=== PATIENT | female | born 1985 | race Caucasian/White ===

== ENCOUNTER 2016-12-28 14:37 | Emergency (ER) | payer OTHER ==
[2016-12-28 14:48] VITALS: TEMP 98; BMI 49.5
--- NOTE | 2016-12-28 14:48 | PDOC ---
Rapid Medical Evaluation Chief Complaint: Chest Pain Time Seen by Provider: 12/28/16 14:43 Medical Evaluation: Allergies I have performed a brief in-person evaluation of this patient. The patient presents with a chief complaint of: 31 yo F history Lyme disease, webber's palsy, GERD presents with 3-4 days of chest pain associated with SOB. Rates pain as 5/10. Also c/o headache for past month. No OCP use, no recent travel. Smokes 1/4 PPD. I have ordered the following: EKG. The patient will proceed to the ED for further evaluation.
--- NOTE | 2016-12-28 19:04 | PDOC ---
History of Present Illness - General History Source: Patient Exam Limitations: No Limitations - History of Present Illness Initial Comments: 12/28/16 19:05 The patient is a 31 year old female with significant past medical history of Lyme disease, bells palsy, GERD, and anxiety who presents to the emergency department with chest pain and shortness of breath for the last 4 days. She states the pain is localized to the epigastric region and radiates up her sternum. She states the pain has been intermittent for the last few days however now it has become constant. She describes the pain as aching and sharp. The pain does not change with exercise. She reports associated shortness of breath. She denies any palpitations or lightheadedness. The patient is also complaining of a headache. She has an appointment to follow up with a neurologist on January 19. She denies recent illness, fevers, or chills. <Pat Weber - Last Filed: 12/28/16 19:05> <Agustín Garcia - Last Filed: 12/28/16 20:13> - General Chief Complaint: Chest Pain Stated Complaint: CHEST PAIN, DIZZINESS Time Seen by Provider: 12/28/16 14:43 Past History <Pat Weber - Last Filed: 12/28/16 19:05> - Past Medical History Asthma: No Cancer: No Cardiac Disorders: No Diabetes: No HTN: No Seizures: No Thyroid Disease: No - Reproductive History (#): 2 Para: 1 - Psycho/Social/Smoking Cessation Hx Anxiety: Yes Suicidal Ideation: No Smoking Status: Yes Smoking History: Never smoked Have you smoked in the past 12 months: No Number of Cigarettes Smoked Daily: 10 If you are a former smoker, when did you quit?: 6 months Information on smoking cessation initiated: Yes 'Breaking Loose' booklet given: 05/18/15 Hx Alcohol Use: No Drug/Substance Use Hx: No Substance Use Type: None Hx Substance Use Treatment: No <Agustín Garcia - Last Filed: 12/28/16 20:13> - Past Medical History Allergies/Adverse Reactions: Allergies Allergy/AdvReac Type Severity Reaction Status Date / Time No Known Allergies Allergy Verified 12/28/16 14:43 Home Medications: Ambulatory Orders Pnv#24/Iron Aa Saba/FA/Dha [ Dha+Complete ] 1 tab PO DAILY 01/20 Penicillin V Potassium [Pen Vee K -] 500 mg PO QID #40 tablet 03/26/16 Folic Acid - 1 mg PO DAILY 03/29/16 Ibuprofen [Motrin -] 600 mg PO Q4H PRN #60 tablet 03/31/16 Review of Systems - Review of Systems Constitutional: No: Chills, Fever Respiratory: No: Cough, Shortness of Breath Cardiac (ROS): Yes: Chest Pain. No: Edema, Lightheadedness, Palpitations, Syncope ABD/GI: No: Nausea, Vomiting Integumentary: No: Rash All Other Systems: Reviewed and Negative <Agustín Garcia - Last Filed: 12/28/16 20:13> *Physical Exam - Vital Signs Last Vital Signs Temp Pulse Resp BP Pulse Ox 98 F 85 16 115/34 98 12/28/16 14:44 12/28/16 14:44 12/28/16 14:44 12/28/16 14:44 12/28/16 14:44 - Physical Exam Comments: 12/28/16 19:05 GENERAL: The patient is awake, alert, and fully oriented, in no acute distress. HEAD: Normal with no signs of trauma. EYES: Pupils equal, round and reactive to light, extraocular movements intact, sclera anicteric, conjunctiva clear with no pallor. ENT: Ears normal, nares patent, oropharynx clear without exudates. Moist mucous membranes. NECK: Normal range of motion, supple without lymphadenopathy, JVD, or masses. LUNGS: Breath sounds equal, clear to auscultation bilaterally. No wheeze/ crackles. HEART: Regular rate and rhythm, normal S1 and S2 without murmur or rub. ABDOMEN: Soft/nontender/nondistended. BS wnl. No guarding or rebound. No palpable masses. No hepatosplenomegaly. EXTREMITIES: Normal range of motion, no edema. No clubbing or cyanosis. No cords, erythema, or tenderness. NEUROLOGICAL: Cranial nerves II through XII grossly intact. Normal speech, normal gait. PSYCH: Normal mood, normal affect. SKIN: Warm, Dry, normal turgor, no rashes or lesions noted. <Pat Weber - Last Filed: 12/28/16 19:05> - Vital Signs Last Vital Signs Temp Pulse Resp BP Pulse Ox 98 F 85 16 115/34 98 12/28/16 14:44 12/28/16 14:44 12/28/16 14:44 12/28/16 14:44 12/28/16 14:44 <Agustín Garcia - Last Filed: 12/28/16 20:13> Heart Score/ECG Review - History History: Slightly suspicious - Electrocardiogram EKG: Non specific repolarization disturbance - Age Age: </= 45 - Risk Factors Based on the list above the patient has:: No risk factors known - Troponin Troponin: </= normal limit - Score Heart Score - Total: 1 #1 ECG reviewed & interpreted by me at: 14:50 General ECG Interpretation: Sinus Rhythm, Normal Rate (81), Normal Intervals ( qtc 453), No acute ischemic changes (TWI V4, flattening V5-6) Compared to previous ECG there are: Changes noted (01/21/16) <Agustín Garcia - Last Filed: 12/28/16 20:13> ED Treatment Course - ADDITIONAL ORDERS Additional order review: Laboratory Results 12/28/16 18:18 Urine HCG, Qual Negative <Pat Weber - Last Filed: 12/28/16 19:05> - ADDITIONAL ORDERS Additional order review: Laboratory Results 12/28/16 18:18 Urine HCG, Qual Negative - RADIOLOGY Radiology Studies Ordered: Category Date Time Status CHEST PA & LAT [RAD] Stat Radiology 12/28/16 18:42 Ordered <Agustín Garcia - Last Filed: 12/28/16 20:13> Medical Decision Making - Medical Decision Making 12/28/16 19:43 A portion of this note was documented by scribe services under my direction. I have reviewed the details of the note, within reason, and agree with the documentation with the following case summary and management plan written by me. 31-year-old female with questionable psych/anxiety history, history of Lyme disease diagnosed in 2014 and treated presents with several days of epigastric and substernal chest pain, sharp and intermittent, not associated with position or by mouth intake or exertion. No shortness of breath or palpitations, no signs or symptoms of DVT, no recent risk factors for PE. Did not have cardiac complications of Lyme such as pericarditis or myocarditis. She presents today versus the other days because she "had time today." Sxs were preceded by some odynophagia and heartburn 2 weeks ago, since resolved. VSS, afebrile, HR and O2 sat normal well appearing, seated in stretcher and ambulating in ED on her headphones no jvd s1s2 rrr, no m ctab abd soft no edema/calf ttp This is a 31-year-old female with history of Lyme disease who presents with atypical chest pain over the last 3 days. The symptoms are not consistent with ACS, she clinically rules out and does not have risk factors for PE. No evidence of infectious process. Question GI, question pericarditis. EKG shows no NM depressions or ST elevations, but there are nonspecific T-wave inversions in V4 and V5 that were not presents on prior EKG. awaiting chest x-ray Will check troponin given several days of symptoms. Presuming negative troponin , patient's heart score is 1 given the repolarization abnormalities. She has prompt follow-up with her primary physician and clamshell operator, so will arrange follow-up if troponins are unremarkable and chest x-ray is clear. Patient was signed out to the oncoming ED physician to follow-up the results, reassess the patient, and dispo accordingly. <Agustín Garcia - Last Filed: 12/28/16 20:13> *DC/Admit/Observation/Transfer - Attestations Scribe Attestion: 12/28/16 19:05 Documentation prepared by Pat Weber, acting as medical voucher clerk for Agustín Garcia MD. <Pat Weber - Last Filed: 12/28/16 19:05> <Agustín Garcia - Last Filed: 12/28/16 20:13> Diagnosis at time of Disposition: Atypical chest pain - Referrals Referrals: Edgardo Blanca MD [Primary Care Provider] -
[2016-12-28 20:40] LABS: BASOPHIL 0.6 % (0-2.0); EOSINOPHIL 1.8 % (0-4.5); MCH 30.5 pg (25.7-33.7); MCHC 33.9 g/dl (32.0-36.0); MEAN CELL VOLUME 90.1 fl (80-96); MEAN PLT VOLUME 8.5 fl (7.5-11.1); NEUTROPHILS 57.5 % (42.8-82.8); PLATELET COUNT 204 K/MM3 (134-434); RDW 12.2 % (11.6-15.6); WHITE BLOOD COUNT 8.5 K/mm3 (4.0-10.0)
[2016-12-28 20:52] LABS: ALBUMIN 4.2 g/dl (3.4-5.0); ANION GAP 6 (8-16); BILIRUBIN,TOTAL 0.3 mg/dL (0.2-1.0); CALCIUM 9.2 mg/dL (8.5-10.1); CO2 30 mmol/L (21-32); CREATININE 0.7 mg/dL (0.55-1.02); GLUCOSE,RANDOM 85 mg/dL (74-106); SGOT/AST 8 U/L (15-37); SGPT/ALT 12 U/L (12-78); TOT PROT 7.1 g/dl (6.4-8.2)
[2016-12-28 20:55] LABS: ALK PHOS 43 U/L (45-117); TROPONIN I < 0.02 ng/ml (0.00-0.05)
--- NOTE | 2016-12-28 21:16 | PDOC ---
*Physical Exam - Vital Signs Last Vital Signs Temp Pulse Resp BP Pulse Ox 98 F 72 20 109/69 97 12/28/16 14:44 12/28/16 20:10 12/28/16 20:10 12/28/16 20:10 12/28/16 20:10 ED Treatment Course - LABORATORY CBC & Chemistry Diagram: 12/28/16 20:10 12/28/16 20:10 - ADDITIONAL ORDERS Additional order review: Laboratory Results 12/28/16 12/28/16 20:10 18:18 Sodium 138 Potassium 3.8 Chloride 102 Carbon Dioxide 30 D Anion Gap 6 L BUN 10 Creatinine 0.7 D Creat Clearance w eGFR > 60 Random Glucose 85 Calcium 9.2 Total Bilirubin 0.3 D AST 8 L D ALT 12 D Alkaline Phosphatase 43 L D Creatine Kinase 45 Troponin I < 0.02 Total Protein 7.1 Albumin 4.2 D Urine HCG, Qual Negative 12/28/16 20:10 RBC 4.44 MCV 90.1 MCHC 33.9 RDW 12.2 MPV 8.5 Neutrophils % 57.5 D Lymphocytes % 33.5 D Monocytes % 6.6 Eosinophils % 1.8 D Basophils % 0.6 *DC/Admit/Observation/Transfer Diagnosis at time of Disposition: Atypical chest pain - Discharge Dispostion Disposition: HOME Admit: No - Prescriptions Prescriptions: Doxycycline Monohydrate [Monodox] 100 mg PO Q12H #30 capsule Oxycodone HCl/Acetaminophen [Percocet 10-325 mg Tablet] 1 each PO TID #20 MDD 4 Valacyclovir HCl [Valtrex] 1,000 mg PO BID #60 tablet - Referrals Referrals: Edgardo Blanca MD [Primary Care Provider] - Wander Green MD [Staff Physician] - Fortino Grant MD [Staff Physician] - - Patient Instructions Printed Discharge Instructions: DI for Atypical Chest Pain - Post Discharge Activity
[2016-12-28 21:26] VITALS: BP 113/74; PULSE 76
--- NOTE | 2016-12-29 10:43 | EKG ---
Test Reason : Blood Pressure : / mmHG Vent. Rate : 081 BPM Atrial Rate : 081 BPM P-R Int : 134 ms QRS Dur : 092 ms QT Int : 390 ms P-R-T Axes : 047 068 014 degrees QTc Int : 453 ms SINUS RHYTHM WITH PREMATURE ATRIAL COMPLEXES NONSPECIFIC T WAVE ABNORMALITY ABNORMAL ECG WHEN COMPARED WITH ECG OF 21-JAN-2016 09:57, PREMATURE ATRIAL COMPLEXES ARE NOW PRESENT NONSPECIFIC T WAVE ABNORMALITY, WORSE IN INFERIOR LEADS Confirmed by NORIS MUÑIZ, LILIA ([id number]) on 12/29/2016 10:43:29 AM Referred By: Confirmed By:LILIA HAMM MD
== END 2016-12-28 21:26 | disposition home or self-care (01) ==
LOC: JER 14:37
DX: R07.89 Other chest pain (principal); A69.20 Lyme disease, unspecified; F41.9 Anxiety disorder, unspecified; K21.9 Gastro-esophageal reflux disease without esophagitis; G51.0 Bell's palsy
CPT/HCPCS: 36415; 71020-TC; 80053; 82550; 84443; 84484; 84703; 85025; 93005; 93010; 99283-25

== ENCOUNTER 2017-02-10 20:06 | Emergency (ER) | payer OTHER ==
[2017-02-10 20:23] VITALS: BP 112/60; PULSE 78; TEMP 98.2; BMI 23.3
--- NOTE | 2017-02-10 20:44 | PDOC ---
[id number] 4d RT ARM PAIN/NUMB Time Seen by Provider: 02/10/17 20:34 History Source: Patient Exam Limitations: No Limitations - History of Present Illness Initial Comments: 02/10/17 20:43 31 yr female with c/o pain to right arm causing numbness and tingling to the forearm . Pt states she has been lifting her heavy 10 month old and felt a pull last monday. Pt denies fever or chills, no coughing. Past History - Past Medical History Allergies/Adverse Reactions: Allergies Allergy/AdvReac Type Severity Reaction Status Date / Time No Known Allergies Allergy Verified 02/10/17 20:19 Home Medications: Ambulatory Orders Cyclobenzaprine HCl [Flexeril 10 mg] 5 mg PO TID PRN #21 tablet 02/10/17 Methylprednisolone [Medrol Dose Juan] 4 mg PO ASDIR #21 tablet 02/10/17 Asthma: No Cancer: No Cardiac Disorders: No Diabetes: No HTN: No Seizures: No Thyroid Disease: No - Reproductive History (#): 2 Para: 1 - Psycho/Social/Smoking Cessation Hx Anxiety: Yes Suicidal Ideation: No Smoking Status: Yes Smoking History: Former smoker Have you smoked in the past 12 months: No Number of Cigarettes Smoked Daily: 10 If you are a former smoker, when did you quit?: 6 months Information on smoking cessation initiated: No 'Breaking Loose' booklet given: 05/18/15 Hx Alcohol Use: No Drug/Substance Use Hx: No Substance Use Type: None Hx Substance Use Treatment: No *Physical Exam - Vital Signs Last Vital Signs Temp Pulse Resp BP Pulse Ox 98.2 F 78 18 112/60 99 02/10/17 20:21 02/10/17 20:21 02/10/17 20:21 02/10/17 20:21 02/10/17 20:21 - Physical Exam General Appearance: Yes: Nourished, Appropriately Dressed HEENT: positive: EOMI, YANDY, Normal ENT Inspection, TMs Normal, Pharynx Normal Neck: positive: Supple, Tender lateral (right side), Other (FROM ). negative: Decreased range of motion, Tender midline Respiratory/Chest: positive: Lungs Clear Cardiovascular: positive: Regular Rhythm, Regular Rate Gastrointestinal/Abdominal: positive: Normal Bowel Sounds, Soft Musculoskeletal: positive: Normal Inspection Extremity: positive: Normal Capillary Refill, Normal Inspection, Other (right shoulder upper arm limited ROM due to pain, pain iwth abduction, straight raise , nv intact ) Integumentary: positive: Normal Color, Dry, Warm Neurologic: positive: Fully Oriented, Alert, Normal Mood/Affect, Normal Response , Motor Strength /5 Medical Decision Making - Medical Decision Making 02/10/17 20:48 cc: pain to right shoulder upper arm for 5 days after lifting young child felt a train to her neck and shoulder, pain has progressed getting worse. pt denies direct trauma pt takes percocet for Lyme disease (joint pain) and for [place] palsy states she ran out of the percocet 3 days ago pt denies any nvd or sweats will get xray of cervical spine toradol IM dc with muscle relaxants and medrol dose pack *DC/Admit/Observation/Transfer Diagnosis at time of Disposition: Cervical radiculopathy - Discharge Dispostion Disposition: HOME Condition at time of disposition: Good - Prescriptions Prescriptions: Cyclobenzaprine HCl [Flexeril 10 mg] 5 mg PO TID PRN #21 tablet PRN Reason: Muscle Spasms Methylprednisolone [Medrol Dose Juan] 4 mg PO ASDIR #21 tablet - Referrals Referrals: Ni Trujillo MD [Primary Care Provider] - - Patient Instructions Additional Instructions: apply ice pack to the area of pain top of shoulder at base of neck every 2hrs for 20 minutes for the next day then apply warm heating pad, warm compresses take the medrol dose pack as directed take flexeril for muscle spasm DO NOT DRIVE, OPERATE MACHINERY DRINK ALCOHOL follow with your neurologist next week for follow up call Monday to make appointment Return to ER for any worsening symptoms
[2017-02-10] MEDS ORDERED: KETOROLAC TROMETHAMINE 60 MG/2 ML VIAL IM ONE (21:40)
[2017-02-10] MEDS ORDERED: KETOROLAC TROMETHAMINE 60 MG/2 ML VIAL ONE (21:42)
== END 2017-02-10 22:14 | disposition home or self-care (01) ==
LOC: JERFT 20:06
PROC: 3E0233Z Introduction of Anti-inflammatory into Muscle, Percutaneous Approach (ICD-10-PCS; principal; 2017-02-10)
DX: M54.12 Radiculopathy, cervical region (principal)
CPT/HCPCS: 72050-TC; 73030-TC-RT; 84703; 96372; 99281-25

== ENCOUNTER 2017-09-26 19:10 | Emergency (ER) | payer BC, OTHER ==
[2017-09-26 19:17] VITALS: BP 140/92; PULSE 60; TEMP 97.4; BMI 21.6
--- NOTE | 2017-09-26 19:18 | PDOC ---
Rapid Medical Evaluation Medical Evaluation: Allergies Allergy/AdvReac Type Severity Reaction Status Date / Time No Known Allergies Allergy Verified 09/26/17 19:13 09/26/17 19:14 I have performed a brief in-person evaluation of this patient. The patient presents with a chief complaint of: constant chest pressure, 6/10, hard time breathing x 1 week, intermittent palvitations, hx of lyme, anxiety. has not taken meds, no recent travel. denies cough, fever, nausea, vomiting Pertinent physical exam findings: CTAB I have ordered the following: EKG, CXR, labs, upreg The patient will proceed to the ED for further evaluation. Discharge Disposition - Diagnosis Chest pressure - Referrals - Patient Instructions - Post Discharge Activity
[2017-09-26 20:12] LABS: BASOPHIL 0.6 % (0-2.0); EOSINOPHIL 2.4 % (0-4.5); MCH 30.5 pg (25.7-33.7); MCHC 33.8 g/dl (32.0-36.0); MEAN CELL VOLUME 90.3 fl (80-96); MEAN PLT VOLUME 9.2 fl (7.5-11.1); NEUTROPHILS 48.2 % (42.8-82.8); PLATELET COUNT 198 K/MM3 (134-434); RDW 12.5 % (11.6-15.6); WHITE BLOOD COUNT 5.9 K/mm3 (4.0-10.0)
--- NOTE | 2017-09-26 20:33 | PDOC ---
History of Present Illness - General Exam Limitations: No Limitations - History of Present Illness Initial Comments: 09/26/17 21:18 Patient is a 31 year old female with a significant past medical history of Lyme disease, bells palsy, GERD, and anxiety who presents to the ED with complaints of SOB that began 1 week ago. Patient reports experiencing SOB symptoms 1 week ago but states she thought she had Bronchitis due to her two children both being diagnosed with it. She reports being able to breathe in fully and release , but states it feels uncomfortable. Patient reports experiencing intermittent chest pain secondary to SOB. Patient reports she became worried about her SOB enough that has stopped smoking. 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 Denies fever, chills. Denies cough, nausea, vomiting. Denies out of state travel. Denies any other symptoms. Allergies: None Social history: Lives with 2 children. Current smoker (10 cigarettes per day). No alcohol. No illicit drugs. Surgical history PMD: None <Edgar Martines - Last Filed: 09/26/17 21:18> - General History Source: Patient <Foreign Genao - Last Filed: 09/26/17 23:33> - General Chief Complaint: Chest Pain Stated Complaint: CHEST PAIN Time Seen by Provider: 09/26/17 19:18 Past History <Edgar Martines - Last Filed: 09/26/17 21:18> - Past Medical History Asthma: No Cancer: No Cardiac Disorders: No COPD: No Diabetes: No HTN: No Seizures: No Thyroid Disease: No Other medical history: matt facial spasm, bells palsy, lymes disease - Reproductive History (#): 2 Para: 1 - Immunization History Immunization Up to Date: Yes - Suicide/Smoking/Psychosocial Hx Smoking Status: Yes Smoking History: Current every day smoker Have you smoked in the past 12 months: No Number of Cigarettes Smoked Daily: 10 If you are a former smoker, when did you quit?: 6 months Information on smoking cessation initiated: No 'Breaking Loose' booklet given: 05/18/15 Hx Alcohol Use: No Drug/Substance Use Hx: No Substance Use Type: None Hx Substance Use Treatment: No <Foreign Genao - Last Filed: 09/26/17 23:33> - Past Medical History Allergies/Adverse Reactions: Allergies Allergy/AdvReac Type Severity Reaction Status Date / Time No Known Allergies Allergy Verified 09/26/17 19:13 Home Medications: Ambulatory Orders NK [No Known Home Medication] 09/26/17 Review of Systems - Review of Systems Able to Perform ROS?: Yes Comments:: 09/26/17 21:19 CONSTITUTIONAL: Absent: fever, no chills, no fatigue EYES: Absent: visual changes ENT: Absent: ear pain, no sore throat CARDIOVASCULAR: +Chest pain. Absent: no palpitations RESPIRATORY:+SOB Absent: cough, GI: Absent: abdominal pain, no nausea, no vomiting, no constipation, no diarrhea GENITOURINARY: Absent: dysuria, no frequency, no hematuria MUSCULOSKELETAL: Absent: back pain, no arthralgia, no myalgia SKIN: Absent: rash All Other Systems: Reviewed and Negative <Edgar Martines - Last Filed: 09/26/17 21:18> *Physical Exam - Vital Signs Last Vital Signs Temp Pulse Resp BP Pulse Ox 97.4 F L 60 18 140/92 100 09/26/17 19:14 09/26/17 19:14 09/26/17 19:14 09/26/17 19:14 09/26/17 19:14 - Physical Exam Comments: 09/26/17 21:19 GENERAL: Well-appearing, well-nourished. No apparent distress. HEENT: Normocephalic, atraumatic. PERRL, EOM intact. CARDIOVASCULAR: Normal S1, S2. Regular rate and rhythm. PULMONARY: Clear to auscultation bilaterally. ABDOMEN: Soft, non-distended, non-tender. EXTREMITIES: Normal ROM in all four extremities. No gross deformities. SKIN: Warm, dry. No rash NEUROLOGICAL: No focal neurological deficits. <Edgar Martines - Last Filed: 09/26/17 21:18> - Vital Signs Last Vital Signs Temp Pulse Resp BP Pulse Ox 97.4 F L 60 18 140/92 100 09/26/17 19:14 09/26/17 19:14 09/26/17 19:14 09/26/17 19:14 09/26/17 19:14 <Foreign Genao - Last Filed: 09/26/17 23:33> Heart Score/ECG Review - ECG Intrepretation Comment:: 09/26/17 21:19 Normal Sinus Rhythm. Normal ECG. <Edgar Martines - Last Filed: 09/26/17 21:18> ED Treatment Course - LABORATORY CBC & Chemistry Diagram: 09/26/17 19:50 09/26/17 19:50 - ADDITIONAL ORDERS Additional order review: Laboratory Results 09/26/17 09/26/17 20:23 19:50 Sodium 140 Potassium 4.2 Chloride 107 Carbon Dioxide 27 Anion Gap 6 L BUN 15 D Creatinine 0.6 Creat Clearance w eGFR > 60 Random Glucose 96 Calcium 8.2 L Total Bilirubin 0.2 D AST 8 L ALT 14 Alkaline Phosphatase 40 L Total Protein 6.7 Albumin 3.8 Urine HCG, Qual Negative 09/26/17 19:50 RBC 3.91 MCV 90.3 MCHC 33.8 RDW 12.5 MPV 9.2 Neutrophils % 48.2 Lymphocytes % 40.5 H D Monocytes % 8.3 Eosinophils % 2.4 Basophils % 0.6 <Edgar Martines - Last Filed: 09/26/17 21:18> - LABORATORY CBC & Chemistry Diagram: 09/26/17 19:50 09/26/17 19:50 <Foreign Genao - Last Filed: 09/26/17 23:33> Medical Decision Making - Medical Decision Making 09/26/17 23:31 Dr. Genao: The scribe's documentation has been prepared under my direction and personally reviewed by me in its entirery. I confirm that the note above accurately reflects all work, treatment, procedures, and medical decision making performed by me. All studies including CTA of chest are negative. Pt feeling better. Pt to be discharge and follow up with cardiology and pulmonary. <Foreign Genao - Last Filed: 09/26/17 23:33> *DC/Admit/Observation/Transfer - Attestations Scribe Attestion: 09/26/17 21:19 Documentation prepared by Edgar Martines, acting as forensic medical examiner for Foreign Genao MD/DO. <Edgar Martines - Last Filed: 09/26/17 21:18> - Discharge Dispostion Admit: No <Foreign Genao - Last Filed: 09/26/17 23:33> Diagnosis at time of Disposition: Chest pressure - Discharge Dispostion Disposition: HOME Condition at time of disposition: Stable - Referrals Referrals: Villa Can MD [Staff Physician] - Eloy Szymanski MD [Staff Physician] - - Patient Instructions Printed Discharge Instructions: DI for Chest Pain
[2017-09-26 20:39] LABS: ALBUMIN 3.8 g/dl (3.4-5.0); ANION GAP 6 (8-16); BILIRUBIN,TOTAL 0.2 mg/dL (0.2-1.0); CALCIUM 8.2 mg/dL (8.5-10.1); CO2 27 mmol/L (21-32); CREATININE 0.6 mg/dL (0.55-1.02); GLUCOSE,RANDOM 96 mg/dL (74-106); SGOT/AST 8 U/L (15-37); SGPT/ALT 14 U/L (12-78); TOT PROT 6.7 g/dl (6.4-8.2)
[2017-09-26 20:40] LABS: ALK PHOS 40 U/L (45-117)
--- NOTE | 2017-09-28 11:39 | EKG ---
Test Reason : Blood Pressure : / mmHG Vent. Rate : 060 BPM Atrial Rate : 060 BPM P-R Int : 128 ms QRS Dur : 092 ms QT Int : 418 ms P-R-T Axes : 024 076 056 degrees QTc Int : 418 ms NORMAL SINUS RHYTHM NORMAL ECG WHEN COMPARED WITH ECG OF 28-DEC-2016 14:50, PREMATURE ATRIAL COMPLEXES ARE NO LONGER PRESENT NONSPECIFIC T WAVE ABNORMALITY NO LONGER EVIDENT IN INFERIOR LEADS NONSPECIFIC T WAVE ABNORMALITY, IMPROVED IN ANTEROLATERAL LEADS Confirmed by LILIA HAMM MD ([id number]) on 09/28/2017 11:39:20 AM Referred By: Confirmed By:LILIA HAMM MD
== END 2017-09-26 23:36 | disposition home or self-care (01) ==
LOC: JER 19:10
DX: R07.89 Other chest pain (principal); K21.9 Gastro-esophageal reflux disease without esophagitis; F41.9 Anxiety disorder, unspecified; F17.210 Nicotine dependence, cigarettes, uncomplicated
CPT/HCPCS: 36415; 71020-TC; 71275-TC; 80053; 84703; 85025; 85379; 93005; 93010; 99283-25

== ENCOUNTER 2019-02-04 19:38 | Emergency (ER) | payer BC, OTHER ==
[2019-02-04 19:48] VITALS: BP 128/92; PULSE 85; TEMP 98.4; BMI 24.2
--- NOTE | 2019-02-04 19:48 | PDOC ---
Rapid Medical Evaluation Time Seen by Provider: 02/04/19 19:45 Medical Evaluation: Allergies Allergy/AdvReac Type Severity Reaction Status Date / Time No Known Allergies Allergy Verified 09/26/17 19:13 02/04/19 19:45 I have performed a brief in-person evaluation of this patient. The patient presents with a chief complaint of: posterior left leg pain x2 weeks Pertinent physical exam findings: TTP to left hamstring. FAROM I have ordered the following: upt The patient will proceed to the ED for further evaluation. Discharge Disposition - Diagnosis Left leg pain - Referrals - Patient Instructions - Post Discharge Activity
--- NOTE | 2019-02-04 21:22 | PDOC ---
History of Present Illness - General Chief Complaint: Pain Stated Complaint: LEFT LEG NUMBNESS Time Seen by Provider: 02/04/19 19:45 - History of Present Illness Initial Comments: 02/04/19 21:20 33-year-old female without comorbidities presents for evaluation of left posterior thigh pain 2 months after coming down from a high step onto a soft floor. Is me there is no chance of she has a history of tubal ligation. Past History - Past Medical History Allergies/Adverse Reactions: Allergies Allergy/AdvReac Type Severity Reaction Status Date / Time No Known Allergies Allergy Verified 02/04/19 19:48 Home Medications: Ambulatory Orders Cyclobenzaprine HCl [Flexeril 10 mg] 10 mg PO HS PRN #10 tablet 02/04/19 Ibuprofen [Motrin -] 600 mg PO TID #30 tablet 02/04/19 Asthma: No Cancer: No Cardiac Disorders: No COPD: No Diabetes: No HTN: No Seizures: No Thyroid Disease: No - Reproductive History (#): 2 Para: 1 - Immunization History Immunization Up to Date: Yes - Suicide/Smoking/Psychosocial Hx Smoking Status: Yes Smoking History: Current every day smoker Have you smoked in the past 12 months: No Number of Cigarettes Smoked Daily: 7 If you are a former smoker, when did you quit?: 6 months Information on smoking cessation initiated: Yes 'Breaking Loose' booklet given: 05/18/15 Hx Alcohol Use: No Drug/Substance Use Hx: No Substance Use Type: None Hx Substance Use Treatment: No Review of Systems - Review of Systems Musculoskeletal: Yes: See HPI *Physical Exam - Vital Signs Last Vital Signs Temp Pulse Resp BP Pulse Ox 98.4 F 85 18 128/92 97 02/04/19 19:45 02/04/19 19:45 02/04/19 19:45 02/04/19 19:45 02/04/19 19:45 - Physical Exam Comments: 02/04/19 21:20 Lumbar spine skin color and temperature are normal range of motion is full. There is no midline or paralumbar musculature spasm or tenderness. She has 5 out of 5 strength in bilateral lower extremities without gross sensorimotor deficits negative straight leg raise test she is neurovascularly intact. She does have tenderness about the superior lateral hamstring musculature. Thighs and calves are soft and nontender she is neurovascularly intact. Medical Decision Making - Medical Decision Making 02/04/19 21:21 Weight-bear as tolerated with use of crutches Flexeril and Motrin as directed I discussed these medications with her. Follow-up with or don't for hamstring strain. *DC/Admit/Observation/Transfer Diagnosis at time of Disposition: Left leg pain, Left hamstring muscle strain - Discharge Dispostion Disposition: HOME Condition at time of disposition: Stable Decision to Admit order: No - Prescriptions Prescriptions: Cyclobenzaprine HCl [Flexeril 10 mg] 10 mg PO HS PRN #10 tablet PRN Reason: Muscle Spasms Ibuprofen [Motrin -] 600 mg PO TID #30 tablet - Referrals Referrals: Ni Trujillo MD [Primary Care Provider] - Warner Watson DO [Staff Physician] - - Patient Instructions Printed Discharge Instructions: Hamstrings Strain, DI for Hamstring Strain Additional Instructions: Weight-bear as tolerated with the use of crutches. Please take the Motrin one tablet 3 times a day as needed for pain with food discontinue the medication if it bothers her stomach. The Flexeril as one tablet before bedtime and will make you sleepy. Return to the emergency room for worsening symptoms. Follow-up with orthopedic surgery in 1-2 days for further evaluation and treatment options. - Post Discharge Activity
== END 2019-02-04 21:33 | disposition home or self-care (01) ==
LOC: JERFT 19:38
DX: S76.312A Strain of muscle, fascia and tendon of the posterior muscle group at thigh level, left thigh, initial encounter (principal); X50.1XXA Overexertion from prolonged static or awkward postures, initial encounter; Y93.89 Activity, other specified; Y92.89 Other specified places as the place of occurrence of the external cause; Y99.8 Other external cause status
CPT/HCPCS: 99281-25

== ENCOUNTER 2019-06-17 16:35 | Emergency (ER) | payer OTHER ==
[2019-06-17 16:41] VITALS: BP 133/86; PULSE 84; TEMP 98.3; BMI 24.7
--- NOTE | 2019-06-17 16:42 | PDOC ---
Rapid Medical Evaluation Chief Complaint: Psychiatric Time Seen by Provider: 06/17/19 16:39 Medical Evaluation: Allergies Allergy/AdvReac Type Severity Reaction Status Date / Time No Known Allergies Allergy Verified 02/04/19 19:48 06/17/19 16:39 This patient had a brief in-person evaluation in triage cc: palpitations and panic attack last night. Has multiple complaints of pain all over body reports taking last paxil Monday, states she needs refill HPI: alert and oriented x 3 tearful and anxious in triage orders: urine preg, ekg This patient will proceed to ED for further evaluation. Discharge Disposition - Diagnosis Palpitations - Referrals - Patient Instructions - Post Discharge Activity
[2019-06-17] MEDS ORDERED: LORazepam 1 MG TABLET PO ONE (18:18)
[2019-06-17] MEDS ORDERED: LORazepam 0.5 MG TABLET ONE (18:23)
[2019-06-17] MEDS ORDERED: IBUPROFEN 400 MG TABLET (FP) PO ONE ×2 (18:25→18:26)
--- NOTE | 2019-06-17 18:33 | PDOC ---
History of Present Illness - General Chief Complaint: Psychiatric Stated Complaint: DIZZY/PRESSURE ON CHEST/ANXIETY Time Seen by Provider: 06/17/19 16:39 History Source: Patient Past History - Past Medical History Allergies/Adverse Reactions: Allergies Allergy/AdvReac Type Severity Reaction Status Date / Time No Known Allergies Allergy Verified 06/17/19 16:41 Home Medications: Ambulatory Orders Cyclobenzaprine HCl [Flexeril 10 mg] 10 mg PO HS PRN #10 tablet 02/04/19 Ibuprofen [Motrin -] 600 mg PO TID #30 tablet 02/04/19 Paroxetine HCl [Paxil] 20 mg PO DAILY #30 tablet 06/17/19 Asthma: No Cancer: No Cardiac Disorders: No COPD: No Diabetes: No HTN: No Psychiatric Problems: Yes (on Paxil) Seizures: No Thyroid Disease: No Other medical history: Lyme disease - Reproductive History (#): 2 Para: 1 - Immunization History Immunization Up to Date: Yes - Suicide/Smoking/Psychosocial Hx Smoking Status: Yes Smoking History: Never smoked Have you smoked in the past 12 months: No Number of Cigarettes Smoked Daily: 7 If you are a former smoker, when did you quit?: 6 months Information on smoking cessation initiated: No 'Breaking Loose' booklet given: 05/18/15 Hx Alcohol Use: No Drug/Substance Use Hx: No Substance Use Type: None Hx Substance Use Treatment: No Review of Systems - Review of Systems Constitutional: No: Chills, Fever Respiratory: No: Shortness of Breath Cardiac (ROS): Yes: Palpitations. No: Chest Pain, Lightheadedness *Physical Exam - Vital Signs Last Vital Signs Temp Pulse Resp BP Pulse Ox 98.3 F 84 18 133/86 99 06/17/19 16:39 06/17/19 16:39 06/17/19 16:39 06/17/19 16:39 06/17/19 16:39 - Physical Exam Comments: 06/17/19 18:33 teary on eval General Appearance: Yes: Appropriately Dressed HEENT: positive: Normal Voice Neck: positive: Supple Respiratory/Chest: positive: Lungs Clear, Normal Breath Sounds. negative: Respiratory Distress Cardiovascular: positive: Regular Rate, S1, S2 Integumentary: positive: Dry, Warm Neurologic: positive: Fully Oriented, Alert, Normal Mood/Affect Medical Decision Making - Medical Decision Making 06/17/19 18:25 33-year-old female endorses history of anxiety/panic disorders on Paxil, lyme's disease w/ residual facial palsy, here with anxiety. Patient states she had multiple panic attacks today which patient describes as palpitations with numbness "to my whole body". States she ran out of her paxil several days ago and that her neurologist is currently out of town. Also admits to multiple life stressors including recent job termination. Patient denies SI or HI at this time but teary in ED see exam Anxiety Since improved No SI/HI EKG from [facility] unremarkable -dose of anxiolytic here -anticipate dc / med refill and f/u *DC/Admit/Observation/Transfer Diagnosis at time of Disposition: Palpitations, Anxiety - Discharge Dispostion Disposition: HOME Condition at time of disposition: Improved - Prescriptions Prescriptions: Paroxetine HCl [Paxil] 20 mg PO DAILY #30 tablet - Referrals - Patient Instructions Printed Discharge Instructions: DI for Anxiety -- Adult Additional Instructions: Resume meds and follow up with your neurologist - Post Discharge Activity
--- NOTE | 2019-06-18 09:29 | EKG ---
Test Reason : Blood Pressure : / mmHG Vent. Rate : 068 BPM Atrial Rate : 068 BPM P-R Int : 132 ms QRS Dur : 094 ms QT Int : 390 ms P-R-T Axes : 055 076 036 degrees QTc Int : 414 ms NORMAL SINUS RHYTHM POSSIBLE LEFT ATRIAL ENLARGEMENT BORDERLINE ECG WHEN COMPARED WITH ECG OF 26-SEP-2017 19:20, NO SIGNIFICANT CHANGE WAS FOUND Confirmed by Pablo Gee MD ([id number]) on 06/18/2019 9:29:44 AM Referred By: Confirmed By:Pablo Gee MD
== END 2019-06-17 19:35 | disposition home or self-care (01) ==
LOC: JER 16:35
DX: F41.9 Anxiety disorder, unspecified (principal); F41.0 Panic disorder [episodic paroxysmal anxiety]
CPT/HCPCS: 93005; 93010; 99281-25

== ENCOUNTER 2019-08-29 14:19 | Emergency (ER) | payer SELFPAY ==
[2019-08-29 14:25] VITALS: BP 154/90; PULSE 88; TEMP 98; BMI 23.3
--- NOTE | 2019-08-29 14:27 | PDOC ---
Rapid Medical Evaluation Chief Complaint: RX Refill Time Seen by Provider: 08/29/19 14:21 Medical Evaluation: Allergies Allergy/AdvReac Type Severity Reaction Status Date / Time No Known Allergies Allergy Verified 06/17/19 16:41 08/29/19 14:22 I have performed a brief in-person evaluation of this patient. The patient presents with a chief complaint of: medication withdrawl from Paxil - not taken x 5 days - dizzy, sweating, nausea- denies other drug use. Pertinent physical exam findings: crying and feels dizziness - denies homocidal or suicidal ideation - I have ordered the following: nothing The patient will proceed to the ED for further evaluation. Discharge Disposition - Diagnosis Medication withdrawal - Discharge Dispostion Condition at time of disposition: Stable - Referrals - Patient Instructions - Post Discharge Activity
--- NOTE | 2019-08-29 15:31 | PDOC ---
Attending Attestation - Resident Resident Name: FamiliaBang - ED Attending Attestation I have performed the following: I have examined & evaluated the patient, The case was reviewed & discussed with the resident, I agree w/resident's findings & plan, Exceptions are as noted - HPI HPI: 08/29/19 15:34 Ms. Delarosa is a 33 yo F h/o anxiety/panic disorder on Paxil, lyme's disease w/ residual facial palsy who presents to the ER with a complaint of anxiety she ran out of her medications 6 days ago and went to the pharmacy but was told that she has no refills She tried getting a follow up appointment but could not until 09/06 Pt presents tearful to the Er No thought to harm or kill herself No thoughts to harm or kill anyone else - Physicial Exam PE: 08/29/19 15:29 GENERAL: The patient is in no acute distress, tearful. ENT: Ears normal, nares patent, oropharynx clear without exudates. Moist mucous membranes. NECK: Normal range of motion, supple LUNGS: Breath sounds equal, clear to auscultation bilaterally. No wheezes, and no crackles. HEART:Regular rate and rhythm, normal S1 and S2 without murmur, rub or gallop. ABDOMEN: Soft, nontender, normoactive bowel sounds. EXTREMITIES: Normal range of motion, no edema. NEUROLOGICAL: Right facial paralysis, otherwise Cranial nerves II through XII grossly intact. Normal speech. No focal neurological deficits. SKIN: Warm, Dry, normal turgor, no rashes or lesions noted. 08/29/19 15:47 - Medical Decision Making 08/29/19 15:[address] Polk. He agrees with patient being given a short course of her Paxil. She can follow-up with him on September 06. Patient asked to return to the emergency department immediately for unstable mood, thoughts to harm herself or anyone else, any other concerns or complaint
--- NOTE | 2019-08-29 16:04 | PDOC ---
History of Present Illness - General Chief Complaint: Psychiatric Stated Complaint: WEAKNESS Time Seen by Provider: 08/29/19 14:21 History Source: Patient Exam Limitations: No Limitations - History of Present Illness Initial Comments: 08/29/19 17:49 33 yo F with a hx of anxiety (was on paxil 20 mg qday) presents to the emergency department with anxiety and need for medication refill. Per the patient, she ran out of her medication paxil 20 mg qday. She doesnt have her follow up appointment with Dr. Trujillo on September 06. She did not realize she had no refills with her last intake of the medication last Monday (6 days since last administration) and was unable to get a refill until she sees Dr. Trujillo. Denies the following: auditory/visual/tactile hallucinations, fever, chills, SI/HI, chest pain, SOB, abdominal pain, dysuria, hematuria, diarrhea, melena, and leg pain/swelling. Past History - Past Medical History Allergies/Adverse Reactions: Allergies Allergy/AdvReac Type Severity Reaction Status Date / Time No Known Allergies Allergy Verified 08/29/19 14:26 Home Medications: Ambulatory Orders Cyclobenzaprine HCl [Flexeril 10 mg] 10 mg PO HS PRN #10 tablet 02/04/19 Ibuprofen [Motrin -] 600 mg PO TID #30 tablet 02/04/19 Paroxetine HCl [Paxil] 20 mg PO DAILY #30 tablet 06/17/19 Paroxetine HCl [Paxil -] 20 mg PO DAILY #10 tablet 08/29/19 Asthma: No Cancer: No Cardiac Disorders: No COPD: No Diabetes: No HTN: No Psychiatric Problems: Yes (on Paxil) Seizures: No Thyroid Disease: No Other medical history: LYME - Reproductive History (#): 2 Para: 1 - Immunization History Immunization Up to Date: Yes - Psycho Social/Smoking Cessation Hx Smoking Status: Yes Smoking History: Never smoked Have you smoked in the past 12 months: No Number of Cigarettes Smoked Daily: 7 If you are a former smoker, when did you quit?: 6 months 'Breaking Loose' booklet given: 05/18/15 Hx Alcohol Use: No Drug/Substance Use Hx: No Substance Use Type: None Hx Substance Use Treatment: No Review of Systems - Review of Systems Able to Perform ROS?: Yes Is the patient limited Mohawk proficient: No Constitutional: No: Chills, Diaphoresis, Fever, Weakness HEENTM: No: Eye Pain, Ear Pain, Nose Pain, Throat Pain, Mouth Pain Respiratory: No: Cough, Shortness of Breath Cardiac (ROS): No: Chest Pain, Lightheadedness, Palpitations ABD/GI: No: Constipated, Diarrhea, Nausea, Rectal Bleeding, Vomiting, Tarry Stools : No: Burning, Dysuria Musculoskeletal: No: Back Pain, Joint Pain, Neck Pain Integumentary: No: Bruising, Erythema, Rash Neurological: No: Headache, Numbness, Tingling, Tremors Psychiatric: Yes: Anxiety. 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 No: Apparent Distress, Intoxicated HEENT: positive: EOMI, YANDY, Normal Voice, Pharynx Normal, Hearing Grossly Normal. negative: Pale Conjunctivae, Scleral Icterus (R), Scleral Icterus (L), Muffled/Hoarse voice, Excessive drooling Neck: positive: Trachea midline, Supple. negative: Tender, Lymphadenopathy (R) , Lymphadenopathy (L), Tender lateral, Tender midline Respiratory/Chest: positive: Lungs Clear, Normal Breath Sounds. negative: Chest Tender, Respiratory Distress, Accessory Muscle Use, Crackles, Rales, Rhonchi, Stridor, Wheezing Cardiovascular: positive: Regular Rhythm, Regular Rate, S1, S2. negative: Systolic Murmur Gastrointestinal/Abdominal: positive: Normal Bowel Sounds, Flat, Soft. negative : Tender Lymphatic: negative: Adenopathy Musculoskeletal: positive: Normal Inspection. negative: CVA Tenderness, Vertebral Tenderness Extremity: positive: Normal Capillary Refill, Normal Inspection, Normal Range of Motion. negative: Tender, Swelling, Calf Tenderness Integumentary: positive: Normal Color, Dry, Warm. 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 Initial vitals: Initial Vital Signs Temp Pulse Resp BP Pulse Ox 98 F 88 18 154/90 100 08/29/19 14:20 08/29/19 14:20 08/29/19 14:20 08/29/19 14:20 08/29/19 14:20 Work up: spoke to Dr. Turjillo. states he will see patient sep 06 and is agreeable to prescribing her paxil 20 mg qday. patient was given prescription Dispo: Discharge Discharge - Discharge Information Problems reviewed: Yes Clinical Impression/Diagnosis: Medication withdrawal Condition: Stable Disposition: HOME - Admission No - Additional Discharge Information Prescriptions: Paroxetine HCl [Paxil -] 20 mg PO DAILY #10 tablet - Follow up/Referral Referrals: [facility] [place] [facility] [place] [Provider Group] Ni Trujillo MD [Staff Physician] - - Patient Discharge Instructions Patient Printed Discharge Instructions: DI for Anxiety -- Adult Additional Instructions: You were seen for your medication refill. Please follow up with Dr. Trujillo on Sep 06. I spoke to him and he agrees you can take the paxil 20 mg. Please return to the emergency department if you have worsening symptoms or new concerning symptoms. Please follow up with the primary medical doctor group within 1 week after discharge. Thank you. - Post Discharge Activity
== END 2019-08-29 17:57 | disposition home or self-care (01) ==
LOC: JER 14:19
DX: F13.230 Sedative, hypnotic or anxiolytic dependence with withdrawal, uncomplicated (principal); F41.9 Anxiety disorder, unspecified
CPT/HCPCS: 99283-25

== ENCOUNTER 2019-10-03 16:00 | Emergency (ER) | payer SELFPAY ==
[2019-10-03 16:18] VITALS: BP 118/79; PULSE 77; TEMP 97.8; BMI 23.3
[2019-10-03] MEDS ORDERED: SULFAMETHOXAZOLE/TRIMETHOPRIM 800MG/160MG D.S. TABLET ONE ×2 (17:04→18:01)
[2019-10-03] MEDS ORDERED: LIDOCAINE 1%/EPI 1:100000 (20 ML MULTI DOSE VIAL) ONE (17:04)
[2019-10-03] MEDS ORDERED: SULFAMETHOXAZOLE/TRIMETHOPRIM 800MG/160MG D.S. TABLET PO ONE (17:06)
--- NOTE | 2019-10-03 17:06 | PDOC ---
History of Present Illness - General Chief Complaint: Wound Stated Complaint: LYMPH NODES UNDER LT ARM Time Seen by Provider: 10/03/19 16:50 History Source: Patient Exam Limitations: No Limitations - History of Present Illness Initial Comments: 10/03/19 17:01 Patient is here with complaints of severe pain tenderness and swelling/enlarged node under her left axilla started 2 days ago. has had the lump on her arm for many many years but the past few days has become painful and yesterday started to swell. States now is approximately 2 times bigger than it had been and is smelling. Denies fever, but has exquisite pain there. Occurred: reports: yesterday Severity: reports: moderate Pain Location: reports: upper extremity (Left axilla) Loss of Consciousness: no loss of consciousness Past History - Travel Traveled outside of the country in the last 30 days: No Close contact w/someone who was outside of country & ill: No - Past Medical History Allergies/Adverse Reactions: Allergies Allergy/AdvReac Type Severity Reaction Status Date / Time No Known Allergies Allergy Verified 10/03/19 16:15 Home Medications: Ambulatory Orders Cyclobenzaprine HCl [Flexeril 10 mg] 10 mg PO HS PRN #10 tablet 02/04/19 Ibuprofen [Motrin -] 600 mg PO TID #30 tablet 02/04/19 Paroxetine HCl [Paxil] 20 mg PO DAILY #30 tablet 06/17/19 Sulfamethoxazole/Trimethoprim [Bactrim *Ds*] 1 each PO BID #14 tablet 10/03/19 Asthma: No Cancer: No Cardiac Disorders: No COPD: No Diabetes: No HTN: No Psychiatric Problems: Yes (on Paxil) Seizures: No Thyroid Disease: No - Reproductive History (#): 2 Para: 1 - Immunization History Immunization Up to Date: Yes - Psycho Social/Smoking Cessation Hx Smoking Status: Yes Smoking History: Current every day smoker Have you smoked in the past 12 months: No Number of Cigarettes Smoked Daily: 7 If you are a former smoker, when did you quit?: 6 months Information on smoking cessation initiated: No 'Breaking Loose' booklet given: 05/18/15 Hx Alcohol Use: No Drug/Substance Use Hx: No Substance Use Type: None Hx Substance Use Treatment: No Review of Systems - Review of Systems Able to Perform ROS?: Yes Is the patient limited Romansh proficient: Yes Constitutional: Yes: Symptoms Reported, See HPI, Malaise. No: Fever HEENTM: No: Symptoms Reported Respiratory: No: Symptoms reported ABD/GI: No: Symptoms Reported Integumentary: Yes: Symptoms Reported, See HPI, Lesions, Lumps All Other Systems: Reviewed and Negative *Physical Exam - Vital Signs Last Vital Signs Temp Pulse Resp BP Pulse Ox 97.8 F 77 18 118/79 100 10/03/19 16:17 10/03/19 16:17 10/03/19 16:17 10/03/19 16:17 10/03/19 16:17 - Physical Exam General Appearance: Yes: Nourished, Appropriately Dressed, Apparent Distress, Moderate Distress HEENT: positive: YANDY, Normal ENT Inspection, Normal Voice, TMs Normal, Pharynx Normal Neck: positive: Supple, Lymphadenopathy (R), Lymphadenopathy (L) Respiratory/Chest: positive: Lungs Clear, Normal Breath Sounds Gastrointestinal/Abdominal: positive: Soft Extremity: positive: Normal Capillary Refill, Tender. 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, Fully Oriented, Alert, Normal Mood/ Affect, Normal Response, Motor Strength 5/5 Procedures - Incision and Drainage I&D Site: Left: Axilla Betadine cleansed: Yes Anesthesia: 2% Lidocaine w/ Epi Blade Size: 11 Iodinated Packin/ in Complications: none Dressing: Yes ED Progress Note - Progress Note Progress Note: 10/03/19 17:07 Left axilla abscess, incised and drained Discharge - Discharge Information Problems reviewed: Yes Clinical Impression/Diagnosis: Abscess of arm, left Condition: Stable Disposition: HOME - Admission No - Follow up/Referral - Patient Discharge Instructions Patient Printed Discharge Instructions: DI for Skin Abscess Additional Instructions: Rest, keep area elevated. Avoid strenuous activity or exercise until wound is healed Use hot soaks to area to bring more blood to the surface and encourage drainage May change dressings as needed to keep clean - trying to avoid removal of packing for 2 days. If packing needs to be changed, return to emergency department or with your followup physician for wound care and evaluation and repacking as needed If packing needs to be removed, then in 2 days, while in the shower remove dressing and quickly pull the packing taken out. Allow water from shower to wash area thoroughly for 2-3 minutes, and pat dry upon exit of shower and replace dressing. Change his dressing daily until the wound is completely healed. May use Tylenol or Motrin for mild pain relief Use stronger medications as directed and prescribed Continue all medications as prescribed Followup with private physician in 2-3 days for wound check Return to emergency Department for worsening swelling, pain, redness, fevers as needed - Post Discharge Activity Work/Back to School Note: Back to Work
== END 2019-10-03 18:26 | disposition home or self-care (01) ==
LOC: JERFT 16:00
PROC: 0H9CXZZ Drainage of Left Upper Arm Skin, External Approach (ICD-10-PCS; principal; 2019-10-03)
DX: L02.414 Cutaneous abscess of left upper limb (principal)
CPT/HCPCS: 87070; 87077; 87205; 99281-25

== ENCOUNTER 2020-10-16 15:33 | Emergency (ER) | payer SELFPAY ==
[2020-10-16 16:11] VITALS: BP 123/88; PULSE 85; TEMP 98.2; BMI 19.7
== END 2020-10-16 16:53 | disposition left against medical advice (07) ==
LOC: JER 15:33
DX: T40.2X1A Poisoning by other opioids, accidental (unintentional), initial encounter (principal)
CPT/HCPCS: 99282-25